=== PATIENT | female | born 1965 | race Caucasian/White ===

== ENCOUNTER 2017-07-12 17:41 | Emergency (ER) | payer SELFPAY ==
[2017-07-12 17:54] VITALS: BP 178/116; PULSE 77; RESP 20; TEMP 99.3; O2SAT 96
--- NOTE | 2017-07-12 18:10 | EDPHY ---
H & P Time Seen by Provider: 07/12/17 17:48 HPI/ROS: CHIEF COMPLAINT: Right knee pain History by patient HISTORY OF PRESENT ILLNESS: 52 old woman presents complaining of pain and swelling in her right knee after slipping and falling outside her apartment building yesterday evening. She has been able to walk on it but it hurts when she bends it or changes position. It hurts mostly on the medial and posterior sides. She has been taking Tylenol with some relief. She has also been using her mother's cane to assist her walking. She has a history of prior patellar dislocation in the past but did not think the patella dislocated this time. She did feel that her knee twisted and felt a pop at the time of the injury. She denies any other pain or injury she did not hit her head or when she fell. REVIEW OF SYSTEMS: As in HPI, and all other systems reviewed and are negative Smoking Status: Heavy smoker Physical Exam: General Appearance: Alert and no distress. Obese Head: Normocephalic, atraumatic Eyes: Pupils equal and round no injection. Extraocular movements are intact. Musculoskeletal: Neck is supple and nontender. Extremities: Right knee positive swelling, no erythema, positive tenderness along the medial joint line> lateral, positive full range of motion passively and actively but with pain. No patellar tenderness. No ligamental laxity appreciated. DP pulses 2+ and equal to the left. Distal sensation is intact. Ankle is within normal limits. Right hip has full range of motion without pain. Skin: No rashes or lesions except as described above. Constitutional: Initial Vital Signs Temperature (C) 37.4 C 07/12/17 17:48 Heart Rate 77 07/12/17 17:48 Respiratory Rate 20 07/12/17 17:48 Blood Pressure 178/116 H 07/12/17 17:48 O2 Sat (%) 96 07/12/17 17:48 O2 Delivery Mode Room Air Allergies/Adverse Reactions: codeine [Codeine] Adverse Reaction (Intermediate, Verified 07/12/17 17:48) NAUSEA Home Medications: Medication Instructions Recorded Lisinopril 07/12/17 MDM/Departure - [facility] ED Course/Re-evaluation: [age] old woman presents complaining of right knee pain and swelling after a fall yesterday. X-ray showed patellar malalignment and question of a fracture on the medial portion as well as a hold fibular fracture and chronic joint changes. I discussed these results with the radiologist. Clinically the patient can fully range her knee and has no patellar tenderness, so I doubt acute patellar fracture. Radiologist states he cannot tell the acuity of the other changes in the patient's tibia.. 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 She has some mild lateral tibial tenderness. I discussed the x-ray findings that are equivocal with the patient. We Will go ahead and put her in a knee immobilizer and have her weight-bearing as tolerated but with close follow up with Orthopedics next week. She has seen Dr. Gray in the past and can follow up with him she says. We discussed home care including rest, ice and elevation. Patient understands and is agreeable to this plan. - Depart Disposition: Home, Routine, Self-Care Clinical Impression: Right knee injury Qualifiers: Encounter type: initial encounter Qualified Code(s): S89.91XA - Unspecified injury of right lower leg, initial encounter Condition: Good Instructions: Knee Immobilizer (ED), Knee Pain (ED) Additional Instructions: You were seen by Dr. Jenny Louie today. Wear knee immobilizer. Continue taking Tylenol as needed for pain and add ibuprofen 600 mg with meals and at bedtime if needed. Ice your knee for 10-15 minutes every hour and keep it elevated above the level of the heart as much as possible. Try to stay off of it for the next 24-48 hours but you may weight bear as tolerated using the cane. Please follow up with Dr. Gray, Orthopedics as soon as possible. Return for any worsening or new concerns. Referrals: Storm Machuca DO [Primary Care Provider] - As per Instructions Lianna Gray MD [Medical Doctor] - As per Instructions
== END 2017-07-12 19:08 | disposition home or self-care (01) ==
LOC: CED 17:41
DX: S89.91XA Unspecified injury of right lower leg, initial encounter (principal); F17.200 Nicotine dependence, unspecified, uncomplicated; W01.0XXA Fall on same level from slipping, tripping and stumbling without subsequent striking against object, initial encounter
CPT/HCPCS: 73564-PO; L1830

== ENCOUNTER → 2017-08-10 | Outpatient (CLI) | payer MEDICAID, OTHER | LOC: FIMAGING 13:47 | PROVIDERS: ATTEND Orthopaedic Surgery | DX: S82.041A Displaced comminuted fracture of right patella, initial encounter for closed fracture (principal); R60.9 Edema, unspecified ==